=== PATIENT | female | born 1985 | race Caucasian/White ===

== ENCOUNTER 2018-02-11 12:31 | Emergency (ER) | payer OTHER ==
[~2018-02-11] VITALS: Ht 160 cm; Wt 64.9 kg
[2018-02-11 14:22] VITALS: BP 137/81
== END 2018-02-11 14:23 | disposition home or self-care (01) ==
LOC: ER 12:31
DX: T17.298A Other foreign object in pharynx causing other injury, initial encounter (principal); X58.XXXA Exposure to other specified factors, initial encounter; Y93.89 Activity, other specified; Y92.89 Other specified places as the place of occurrence of the external cause; Y99.8 Other external cause status